=== PATIENT | male | born 1980 | race Caucasian/White ===

== ENCOUNTER 2025-03-22 11:49 | Emergency (ER) | payer MEDICAID ==
[~2025-03-22] VITALS: Ht 172.7 cm; Wt 195.0 kg
[2025-03-22 13:38] LABS: BASOPHILS % 0.4 % (0.0-2.0); EOSINOPHILS % 1.6 % (0.0-5.0); HEMATOCRIT. 44.2 % (42.0-52.0); HEMOGLOBIN. 14.4 g/dL (14.0-18.0); LYMPHOCYTES % 8.4 % (20.0-50.0); MEAN PLATELET VOLUME 9.1 fl (7.4-10.4); MONOCYTES % 5.2 % (2.0-8.0); NEUTROPHILS % 84.4 % (40.0-76.0); PLATELET 236 x1000/uL (130-400); RED BLOOD CELL COUNT 4.61 mill/uL (4.7-6.1); RED CELL DISTRIBUTION WIDTH 14.3 % (11.6-14.6)
[2025-03-22 13:51] LABS: CREATININE 0.6 mg/dL (0.6-1.3); UREA NITROGEN BLOOD 5 mg/dL (9-23)
[2025-03-22 13:53] LABS: TROPONIN I HIGH SENSITIVITY 4 ng/L (3.0-53)
[2025-03-22] MEDS: ALBUTEROL (0.5%) 2.5MG/0.5ML NEB HHN ONE (13:54)
[2025-03-22 13:56] VITALS: PULSE 88; RESP 22; O2SAT 96
[2025-03-22] MEDS ORDERED: PSEU120T56 MT (13:57)
[2025-03-22 14:58] VITALS: BP 143/78; PULSE 80; RESP 22; TEMP 36.6; O2SAT 96
[2025-03-22 15:36] LABS: INFLUENZA TYPE A Presumptive Negative (Pres. Neg.); INFLUENZA TYPE B Presumptive Negative (Pres. Neg.); RESPIRATORY SYNCYTIAL VIRUS Not Detected (Not Detectd)
== END 2025-03-22 14:59 | disposition home or self-care (01) ==
LOC: ER 11:49
DX: J06.9 Acute upper respiratory infection, unspecified (principal); Z20.822 Contact with and (suspected) exposure to COVID-19; Z98.890 Other specified postprocedural states
CPT/HCPCS: 80048; 85025; 87420; 84484; 87804 ×2; 36415; 71045; 94640; 93005; 99285; 87426; Z7610 ×3